=== PATIENT | female | born 1950 | race Caucasian/White ===

== ENCOUNTER 2018-07-05 10:30 | Emergency (ER) | payer MEDICARE ==
[~2018-07-05] VITALS: Ht 167.6 cm; Wt 116.6 kg
[2018-07-05 10:56] LABS: ABSOLUTE BASOPHILS 0.1 thou/uL (0.0-0.2); ABSOLUTE EOSINOPHILS 0.1 thou/uL (0.0-0.7); ABSOLUTE LYMPHOCYTES 2.7 thou/uL (0.8-5.3); ABSOLUTE MONOCYTES 0.5 thou/uL (0.0-1.2); ABSOLUTE NEUTROPHILS 5.5 thou/uL (1.6-8.1); BASOPHILS 1.1 %; EOSINOPHILS 1.7 %; HEMATOCRIT 48.9 % (37.0-47.0); HEMOGLOBIN 16.5 gm/dL (12.0-15.0); LYMPHOCYTES 30.1 %; MCHC 33.8 g/dL (28.0-37.0); MCV 88.6 fL (80.0-100.0); MONOCYTES 5.4 %; NUCLEATED RBCS 0 /100WBC; PLATELET COUNT* 215 thou/uL (150-400); POLYS 61.7 %; RBC 5.52 mil/uL (4.20-5.00); RDW-CV 14.4 % (10.5-14.5); WBC 8.9 thou/uL (4.0-11.0)
[2018-07-05 11:04] LABS: POC CA IONIZED 4.7 mg/dL (4.5-5.3); POC CREATININE 0.6 mg/dL (0.6-1.3); POC HEMOGLOBIN 17.7 g/dL (12.0-17.0)
[2018-07-05 11:04] LABS: ANION GAP 5 mmol/L (7-16); BUN 8 mg/dL (7-18); CALCIUM 8.9 mg/dL (8.5-10.1); CHLORIDE 102 mmol/L (98-107); CO2 32 mmol/L (21-32); CREATININE 0.7 mg/dL (0.6-1.3); GLUCOSE 98 mg/dL (70-99); POTASSIUM 3.8 mmol/L (3.5-5.1); SODIUM 139 mmol/L (136-145)
[2018-07-05 11:14] LABS: ALBUMIN 3.5 g/dL (3.4-5.0); ALKALINE PHOSPHATASE 88 U/L (46-116); LIPASE 124 U/L (73-393); NT-PRO BRAIN NAT PEPTIDE 85 pg/mL (<300); SGOT 16 U/L (15-37); SGPT 19 U/L (30-65); TOTAL BILIRUBIN 0.4 mg/dL (<0.1-1.0); TOTAL PROTEIN 7.3 g/dL (6.4-8.2); TROPONIN-I LEVEL <0.06 ng/mL (<0.06)
[2018-07-05] MEDS ORDERED: TRAMADOL 50 MG50 MG PO (13:14)
[2018-07-05] MEDS ORDERED: TORADOL 10 MG T10 MG PO (13:14)
[2018-07-05 13:31] VITALS: BP 168/58
--- NOTE | 2018-07-05 17:13 | EKG ---
[place] [address] ELECTROCARDIOGRAM REPORT Name: DAY WALLACE [id number] Admission: 07/05/18 Attend Phys: Discharge: 07/05/18 Date of : 52 Report #: [id number] THIS REPORT FOR: //name// [facility] ED Test Date: 2018-07-05 Test Time: 11:16:21 Pat Name: DAY WALLACE Department: Room: Gender: F Division Chair: IFEOMA : 1950 Requested By: Dionte Llanos Order Number: [id number] MD: Lalit Causey Measurements Intervals [place] Rate: 66 P: 72 AR: 181 QRS: 69 QRSD: 87 T: 49 QT: 399 QTc: 418 Interpretive Statements Sinus rhythm Electronically Signed On 07-05-2018 17:12:59 CDT by Lalit Causey [email or web address] <ELECTRONICALLY SIGNED> By: Lalit Causey MD, [facility] 07/05/18 1712 1116 1116 Lalit Causey MD, FACC /EPI
--- NOTE | 2018-07-05 17:13 | EKG ---
[place] [address] ELECTROCARDIOGRAM REPORT Name: DAY WALLACE [facility] [id number] Admission: 07/05/18 Attend Phys: Discharge: 07/05/18 Date of : 52 Report #: [id number] THIS REPORT FOR: //name// [facility] ED Test Date: 2018-07-05 Test Time: 11:03:21 Pat Name: DAYLucretia WALLACE Department: Room: Gender: F [employer] Operator: Rita CHISHOLM : 1950 Requested By: Dionte Llanos Order Number: [id number] MD: Lalit Causey Measurements Intervals [place] Rate: 69 P: 85 [place]: 181 QRS: 73 QRSD: 88 T: 64 QT: 385 QTc: 413 Interpretive Statements Sinus rhythm No previous ECG available for comparison Electronically Signed On 07-05-2018 17:12:44 CDT by Lalit Causey [email or web address] <ELECTRONICALLY SIGNED> By: Lalit Causey MD, [facility] 07/05/18 1712 1103 1103 Lalit Causey MD, FACC /EPI
== END 2018-07-05 13:32 | disposition home or self-care (01) ==
LOC: M.ERS 10:30
PROVIDERS: Emergency Medicine
DX: R51 Headache (principal)